=== PATIENT | female | born 1925 | race Caucasian/White ===

== ENCOUNTER 2016-09-24 21:25 | Inpatient (IN) | payer MEDICARE, BC ==
--- NOTE | 2016-09-24 21:40 | EDM.PDOC ---
ED HPI GENERAL MEDICAL PROBLEM - General Chief Complaint: General Stated Complaint: [facility] Time Seen by Provider: 09/24/16 21:39 - History of Present Illness INITIAL COMMENTS - FREE TEXT/NARRATIVE: 89-year-old [place] [facility] not [facility]. For the last week the patient is having upset stomach and has been complaining of abdominal pain. In the clinic yesterday it was discovered that she was anemic and is set up for a blood transfusion tomorrow. Patient has had a history of ulcers in the past however is not on any antiulcer medication at this time. She doesn't seem to be complaining of any chest pain not have any breathing difficulties or shortness of breath. Mostly history is from family who spends a lot of time with her. Left Shoulder Pain Score (Numeric/FACES): 3 - Related Data Allergies Allergy/AdvReac Type Severity Reaction Status Date / Time donepezil [From Aricept] Allergy Cannot Verified 09/24/16 21:36 Remember Sulfa (Sulfonamide Allergy Cannot Verified 08/01/15 10:20 Antibiotics) Remember sulfamethoxazole Allergy Cannot Verified 09/24/16 21:36 [From Bactrim] Remember trimethoprim [From Bactrim] Allergy Cannot Verified 09/24/16 21:36 Remember Home Meds: Home Meds Aspirin [Ecotrin] 1 tab PO DAILY 08/01/15 [History] Atenolol [Tenormin] 1 tab PO DAILY 08/01/15 [History] Lisinopril 1 tab PO DAILY 08/01/15 [History] amLODIPine [Norvasc] 1 tab PO DAILY 08/01/15 [History] ED ROS GENERAL - Review of Systems Review Of Systems: See Below Constitutional: Reports: No Symptoms HEENT: Reports: No Symptoms Respiratory: Reports: No Symptoms Cardiovascular: Reports: No Symptoms. Denies: Chest Pain Endocrine: Reports: No Symptoms GI/Abdominal: Reports: Abdominal Pain (Mostly upper abdominal) : Reports: Other (Patient was treated with Bactrim for urinary tract infection she finished this up on the family seems to think that this is when her stomach trouble started.) Neurological: Reports: Confusion. Denies: Headache ED EXAM, GENERAL - Physical Exam Exam: See Below Exam Limited By: Altered Mental Status General Appearance: Alert, Other (He is mildly diaphoretic answers some questions) Eye Exam: Bilateral Eye: Normal Inspection Nose: Normal Inspection, Normal Mucosa, No Blood Throat/Mouth: Normal Inspection, Normal Lips, Normal Oropharynx, Normal Voice, No Airway Compromise Head: Atraumatic, Normocephalic Neck: Normal Inspection, Supple, Non-Tender, Full Range of Motion Respiratory/Chest: No Respiratory Distress, Lungs Clear, Normal Breath Sounds Cardiovascular: Regular Rate, Rhythm, No Edema, No Murmur GI/Abdominal: Normal Bowel Sounds, Soft, Other (She has some upper abdominal tenderness worse in the epigastric area and to a lesser degree in the left upper quadrant. No other tenderness appreciated no rebound or guarding noted) Rectal (Female) Exam: Normal Rectal Tone, Black Stool, Heme + Stool Back Exam: Normal Inspection. No: CVA Tenderness (L), CVA Tenderness (R) Extremities: Normal Inspection Course - Vital Signs Last Recorded V/S: Last Vital Signs Temp Pulse 61 09/24/16 21:27 Resp 18 09/24/16 21:27 BP 131/51 L 09/24/16 21:27 Pulse Ox 100 09/24/16 21:27 - Orders/Labs/Meds Orders: Active Orders 24 hr Category Date Time Status Hemoccult [Fecal Occult Blood Collection] [RC] Care 09/24/16 22:06 Active ASDIRECTED Chest 1V Frontal [CR] Stat Exams 09/24/16 21:59 Taken CULTURE BLOOD [BC] Stat Lab 09/24/16 23:49 Received CULTURE BLOOD [BC] Stat Lab 09/24/16 23:49 Received Pantoprazole [ProTONIX IV] 80 mg Med 09/25/16 02:00 Ordered Sodium Chloride 0.9% [Normal Saline] 100 ml IV Q10H Blood Culture x2 Reflex Set [OM.PC] Stat Oth 09/24/16 23:49 Ordered Medication Orders Pantoprazole Sodium 80 mg/ (Sodium Chloride) 100 mls @ 10 mls/hr IV Q10H EBEN PRN Reason: 8 MG/HR Labs: Laboratory Tests 09/24/16 09/24/16 09/24/16 Range/Units 22:10 22:10 22:10 WBC 7.45 (3.98-10.04) K/mm3 RBC 3.31 L (3.98-5.22) M/mm3 Hgb 10.5 L (11.2-15.7) gm/L Hct 30.8 L (34.1-44.9) % MCV 93.1 (79.4-94.8) fl MCH 31.7 (25.6-32.2) pg MCHC 34.1 (32.2-35.5) g/dl RDW Std Deviation 47.7 H (36.4-46.3) fL Plt Count 472 H (182-369) K/mm3 MPV 10.3 (9.4-12.3) fl Neutrophils % (Manual) 69 H (40-60) % Band Neutrophils % 0 (0-10) % Lymphocytes % (Manual) 25 (20-40) % Atypical Lymphs % 0 % Monocytes % (Manual) 6 (2-10) % Eosinophils % (Manual) 0 L (0.7-5.8) % Basophils % (Manual) 0 L (0.1-1.2) Platelet Estimate Increased RBC Morph Comment Normal PT 10.6 (8.0-13.0) SECONDS INR 0.97 APTT 21 L (22-36) SECONDS Sodium 137 (136-145) mEq/L Potassium 3.7 (3.5-5.1) mEq/L Chloride 103 (98-107) mEq/L Carbon Dioxide 23 (21-32) mEq/L Anion Gap 14.7 (5-15) BUN 21 H (7-18) mg/dL Creatinine 0.8 (0.55-1.02) mg/dL Est Cr Clr Drug Dosing 34.24 mL/min Estimated GFR (MDRD) > 60 (>60) mL/min BUN/Creatinine Ratio 26.3 H (14-18) Glucose 176 H (83-115) mg/dL Lactic Acid (0.4-2.0) mmol/L Calcium 8.0 L (8.5-10.1) mg/dL Total Bilirubin 0.5 (0.2-1.0) mg/dL AST 22 (15-37) U/L ALT 27 (14-59) U/L Alkaline Phosphatase 40 L (46-116) U/L Troponin I 0.032 (0.00-0.056) ng/mL Total Protein 5.5 L (6.4-8.2) g/dl Albumin 2.6 L (3.4-5.0) g/dl Globulin 2.9 gm/dL Albumin/Globulin Ratio 0.9 L (1-2) Lipase 98 (73-393) U/L Urine Color (Yellow) Urine Appearance (Clear) Urine pH (5.0-8.0) Ur Specific [place] (1.005-1.030) Urine Protein (Negative) Urine Glucose (UA) (Negative) Urine Ketones (Negative) Urine Occult Blood (Negative) Urine Nitrite (Negative) Urine Bilirubin (Negative) Urine Urobilinogen (0.2-1.0) Ur Leukocyte Esterase (Negative) Urine RBC (0-5) /hpf Urine WBC (0-5) /hpf Ur Epithelial Cells (0-5) /hpf Urine Bacteria (FEW) /hpf Urine Mucus (FEW) /hpf 09/24/16 09/25/16 Range/Units 22:27 00:12 WBC (3.98-10.04) K/mm3 RBC (3.98-5.22) M/mm3 Hgb (11.2-15.7) gm/L Hct (34.1-44.9) % MCV (79.4-94.8) fl MCH (25.6-32.2) pg MCHC (32.2-35.5) g/dl RDW Std Deviation (36.4-46.3) fL Plt Count (182-369) K/mm3 MPV (9.4-12.3) fl Neutrophils % (Manual) (40-60) % Band Neutrophils % (0-10) % Lymphocytes % (Manual) (20-40) % Atypical Lymphs % % Monocytes % (Manual) (2-10) % Eosinophils % (Manual) (0.7-5.8) % Basophils % (Manual) (0.1-1.2) Platelet Estimate RBC Morph Comment PT (8.0-13.0) SECONDS INR APTT (22-36) SECONDS Sodium (136-145) mEq/L Potassium (3.5-5.1) mEq/L Chloride (98-107) mEq/L Carbon Dioxide (21-32) mEq/L Anion Gap (5-15) BUN (7-18) mg/dL Creatinine (0.55-1.02) mg/dL Est Cr Clr Drug Dosing mL/min Estimated GFR (MDRD) (>60) mL/min BUN/Creatinine Ratio (14-18) Glucose (83-115) mg/dL Lactic Acid 3.6 H (0.4-2.0) mmol/L Calcium (8.5-10.1) mg/dL Total Bilirubin (0.2-1.0) mg/dL AST (15-37) U/L ALT (14-59) U/L Alkaline Phosphatase (46-116) U/L Troponin I (0.00-0.056) ng/mL Total Protein (6.4-8.2) g/dl Albumin (3.4-5.0) g/dl Globulin gm/dL Albumin/Globulin Ratio (1-2) Lipase (73-393) U/L Urine Color Yellow (Yellow) Urine Appearance Clear (Clear) Urine pH 6.0 (5.0-8.0) Ur Specific [place] 1.025 (1.005-1.030) Urine Protein Negative (Negative) Urine Glucose (UA) Negative (Negative) Urine Ketones Negative (Negative) Urine Occult Blood Negative (Negative) Urine Nitrite Negative (Negative) Urine Bilirubin Negative (Negative) Urine Urobilinogen 0.2 (0.2-1.0) Ur Leukocyte Esterase Negative (Negative) Urine RBC 0-5 (0-5) /hpf Urine WBC 0-5 (0-5) /hpf Ur Epithelial Cells 0-5 (0-5) /hpf Urine Bacteria Not seen (FEW) /hpf Urine Mucus Not seen (FEW) /hpf Meds: Medications Generic Name Dose Route Start Last Admin Trade Name Freq PRN Reason Stop Dose Admin Pantoprazole Sodium 80 mg/ 100 mls @ 10 mls/hr 09/25/16 02:00 Sodium Chloride IV Q10H EBEN 8 MG/HR Discontinued Medications Generic Name Dose Route Start Last Admin Trade Name Freq PRN Reason Stop Dose Admin Al Hydroxide/Mg Hydroxide 30 0 ml 09/24/16 23:10 09/24/16 23:19 ml/ Lidocaine HCl 15 ml PO 09/24/16 23:11 45 ml ONETIME ONE Administration Fentanyl 25 mcg 09/24/16 23:58 09/25/16 00:09 Sublimaze IVPUSH 09/24/16 23:59 25 mcg ONETIME ONE Administration Lactated Ringer's 500 mls @ 999 mls/hr 09/24/16 23:48 09/24/16 23:52 Ringers, Lactated IV 09/25/16 00:18 999 mls/hr .BOLUS ONE Administration Pantoprazole Sodium 40 mg 09/24/16 22:02 09/24/16 22:15 Protonix Iv IVPUSH 09/24/16 22:03 40 mg ONETIME ONE Administration Pantoprazole Sodium 40 mg 09/25/16 01:53 Protonix Iv IVPUSH 09/25/16 01:54 ONETIME ONE Sucralfate 1 gm 09/24/16 22:01 09/24/16 22:15 Carafate PO 09/24/16 22:02 1 gm ONETIME ONE Administration - Re-Assessments/Exams Free Text/Narrative Re-Assessment/Exam: 09/24/16 22:12 Upper abdominal discomfort history of ulcers in the past and heme positive stools. We'll try her on some Carafate for symptom improvement give her some IV Protonix await labs cardiac and gastrointestinal labs pending. Will recheck a CBC consider transfusion of 1 unit tonight 09/24/16 23:12 Patient didn't get any improvement with the Carafate will try GI cocktail CBC is back no other labs back at this point CBC is shows an anemia does not meet criteria for transfusion. We'll try GI cocktail and anticipate a CT scan she is hard to evaluate with her dementia. 09/25/16 02:07 Shortly after the chest x-ray done, it was looked at and was concerning for possible free air under the diaphragm. This was discussed with family and the implications the made it apparent that she is a DNR and are not interested in going to [place] they're not interested in surgical management they're more interested in comfort care. They do not want an NG tube however they agreed to antibiotics and possibly transfusion. Case was discussed with Dr. Molina surgeon labor relations worker who doesn't think he has much to offer in this situation recommends IV antibiotics. He also recommended CT however the family is against the idea of getting a CT. We discussed NG tube placement as this may be beneficial and would they would like to hold off on this. Patient will be admitted for pain control antibiotics and IV fluids. Early on the patient received 40 mg of IV Protonix when she was found to be Hemoccult positive we will give her an additional 40 mg of IV Protonix and started on a Protonix drip 8 mg an hour for 10 hours. Departure - Departure Time of Disposition: 02:23 Disposition: Admitted As Inpatient 68 Clinical Impression: Perforated abdominal viscus - Discharge Information Forms: ED Department Discharge - My Orders Last 24 Hours: My Active Orders 09/24/16 21:59 Chest 1V Frontal [CR] Stat 09/24/16 22:06 Hemoccult [Fecal Occult Blood Collection] [RC] ASDIRECTED 09/24/16 23:49 CULTURE BLOOD [BC] Stat CULTURE BLOOD [BC] Stat Blood Culture x2 Reflex Set [OM.PC] Stat 09/25/16 02:00 Pantoprazole [ProTONIX IV] 80 mg Sodium Chloride 0.9% [Normal Saline] 100 ml IV Q10H - Assessment/Plan Last 24 Hours: My Active Orders 09/24/16 21:59 Chest 1V Frontal [CR] Stat 09/24/16 22:06 Hemoccult [Fecal Occult Blood Collection] [RC] ASDIRECTED 09/24/16 23:49 CULTURE BLOOD [BC] Stat CULTURE BLOOD [BC] Stat Blood Culture x2 Reflex Set [OM.PC] Stat 09/25/16 02:00 Pantoprazole [ProTONIX IV] 80 mg Sodium Chloride 0.9% [Normal Saline] 100 ml IV Q10H
[2016-09-24] MEDS ORDERED: Sucralfate Suspension 1 GM/10 ML Cup PO ONE (22:01)
[2016-09-24] MEDS ORDERED: Pantoprazole 40 MG Vial IVPUSH ONE (22:02)
[2016-09-24] MEDS ORDERED: Alum Hydrox/Mag Hydrox/Simeth 30 ML, Lidocaine 2% 15 ML PO ONE ×2 (23:10)
[2016-09-24] MEDS ORDERED: Lactated Ringers 500 ML IV ONE (23:48)
[2016-09-24] MEDS ORDERED: fentaNYL 100 MCG/2 ML SDV IVPUSH ONE (23:58)
[2016-09-25] MEDS ORDERED: Pantoprazole 40 MG Vial IVPUSH ONE (01:53)
[2016-09-25] MEDS ORDERED: Pantoprazole 80 MG in Sodium Chloride 0.9% 100 ML IV SCH (02:00)
[2016-09-25] MEDS ORDERED: Lactated Ringers 250 ML IV ONE (02:34)
[2016-09-25] MEDS ORDERED: Lactated Ringers 1,000 ML ONE (02:38)
[2016-09-25] MEDS ORDERED: Dextrose 5%-Lactated Ringers 1,000 ML ONE (02:48)
[2016-09-25] MEDS ORDERED: Dextrose 5%-Lactated Ringers 1,000 ML IV SCH ×2 (03:00→04:00)
[2016-09-25] MEDS ORDERED: Piperacillin/Tazobactam 3.375 GM in Sodium Chloride 0.9% 100 ML IV SCH (03:45)
[2016-09-25] MEDS ORDERED: fentaNYL 100 MCG/2 ML SDV IVPUSH PRN (03:47)
[2016-09-25] MEDS ORDERED: Piperacillin/Tazobactam 4.5 GM in Sodium Chloride 0.9% 100 ML IV ONE (04:00)
[2016-09-25] MEDS ORDERED: Piperacillin/Tazobactam 3.375 GM in Sodium Chloride 0.9% 100 ML IV ONE (04:00)
[2016-09-25] MEDS: metroNIDAZOLE/Normal Saline 500 MG in Premix Bag 1 BAG IV SCH ×4 (04:33→23:11)
[2016-09-25] MEDS: fentaNYL 100 MCG/2 ML SDV IVPUSH PRN ×2 (05:17→08:32)
--- NOTE | 2016-09-25 08:42 | CR ---
Chest: Frontal view of the chest was obtained. Comparison: No previous chest x-ray. Free air identified below both hemidiaphragms. Heart size and mediastinum are within normal limits for age. Lungs are clear with no acute infiltrates. Bony structures are osteopenic. Mild degenerative change scattered within the thoracic spine. Impression: 1. Free air beneath the hemidiaphragms. Difficult to exclude bowel perforation if patient has had no previous surgery. 2. Other incidental findings. Diagnostic code #5 Agree with preliminary report issued by [facility] ([facility] preliminary report dictated on 09/25/16, 1:03 AM Central Time)
[2016-09-25] MEDS ORDERED: HYDROmorphone 1 MG/ML Syringe IVPUSH PRN (09:04)
[2016-09-25] MEDS: Dextrose 5%-0.45% NaCl 1,000 ML IV SCH ×2 (09:34→19:31)
--- NOTE | 2016-09-25 10:37 | PCM.PN ---
- General Info Date of Service: 09/25/16 Admission Dx/Problem (Free Text): Patient is seen this morning with team rounding. She is awake, alert, disorientated, resting comfortably upon entering room. Family member is sleeping on couch. Family has declined CT evaluation of abdomen while in ER and has requested comfort cares with antibiotics, fluids and pain medications. Suspected perforated viscus, gastric/peptic ulcer by hx, with free air noted under the diaphragm on CXR in ER. Functional Status: Denies: tolerating diet (NPO), ambulating - Review of Systems General: Denies: Fever Pulmonary: Denies: shortness of breath, cough Gastrointestinal: Reports: Abdominal pain Neurological: Reports: Confusion Psychiatric: Reports: confusion Systems Review Comment:: ROS unable to obtain due to dementia/mental status - Patient Data Vitals - most recent: Last Vital Signs Temp Pulse 58 L 09/25/16 08:00 Resp 18 09/25/16 08:00 BP 113/64 09/25/16 07:29 Pulse Ox 95 09/25/16 10:07 Weight - most recent: 117 lb 4.8 oz I&O - last 24 hours: Intake & Output 09/24/16 09/25/16 09/25/16 22:59 06:59 14:59 Intake Total 531 Balance 531 Lab Results last 24 hrs: Laboratory Results - last 24 hr 09/25/16 09/25/16 09/25/16 Range/Units 08:10 08:10 08:10 WBC 3.22 L (3.98-10.04) K/mm3 RBC 3.27 L (3.98-5.22) M/mm3 Hgb 10.1 L (11.2-15.7) gm/L Hct 30.4 L (34.1-44.9) % MCV 93.0 (79.4-94.8) fl MCH 30.9 (25.6-32.2) pg MCHC 33.2 (32.2-35.5) g/dl RDW Std Deviation 49.3 H (36.4-46.3) fL Plt Count 420 H (182-369) K/mm3 MPV 10.4 (9.4-12.3) fl Neut % (Auto) 75.5 H (34.0-71.1) % Lymph % (Auto) 17.7 L (19.3-51.7) % [place] % (Auto) 6.2 (4.7-12.5) % Eos % (Auto) 0 L (0.7-5.8) Baso % (Auto) 0.3 (0.1-1.2) % Neut # (Auto) 2.43 (1.56-6.13) K/mm3 Lymph # (Auto) 0.57 L (1.18-3.74) K/mm3 [place] # (Auto) 0.20 L (0.24-0.36) K/mm3 Eos # (Auto) 0.00 L (0.04-0.36) K/mm3 Baso # (Auto) 0.01 (0.01-0.08) K/mm3 Manual Slide Review Abnormal smear Sodium 135 L (136-145) mEq/L Potassium 4.1 (3.5-5.1) mEq/L Chloride 104 (98-107) mEq/L Carbon Dioxide 19 L (21-32) mEq/L Anion Gap 16.1 H (5-15) BUN 26 H (7-18) mg/dL Creatinine 1.4 H (0.55-1.02) mg/dL Est Cr Clr Drug Dosing 19.57 mL/min Estimated GFR (MDRD) 35 (>60) mL/min BUN/Creatinine Ratio 18.6 H (14-18) Glucose 227 H (83-115) mg/dL Lactic Acid 5.1 H (0.4-2.0) mmol/L Calcium 7.7 L (8.5-10.1) mg/dL C-Reactive Protein 5.1 H* (<1.0) mg/dL Med Orders - Current: Current Medications Hydromorphone HCl (Dilaudid) 1 mg IVPUSH Q1H PRN PRN Reason: Pain (moderate 4-6) Last Admin: 09/25/16 09:51 Dose: 1 mg Metronidazole 500 mg/ Premix 100 mls @ 100 mls/hr IV Q6H [facility] Last Admin: 09/25/16 09:34 Dose: 100 mls/hr Piperacillin Sod/Tazobactam (Sod 4.5 gm/ Sodium Chloride) 100 mls @ 25 mls/hr IV Q8H [facility] Dextrose/Sodium Chloride (Dextrose 5%-1/2 Ns) 1,000 mls @ 100 mls/hr IV ASDIRECTED EBEN Last Admin: 09/25/16 09:34 Dose: 100 mls/hr Pantoprazole Sodium (Protonix Iv) 40 mg IVPUSH Q24H [facility] Discontinued Medications Al Hydroxide/Mg Hydroxide 30 (ml/ Lidocaine HCl 15 ml) 0 ml PO ONETIME ONE Stop: 09/24/16 23:11 Last Admin: 09/24/16 23:19 Dose: 45 ml Fentanyl (Sublimaze) 25 mcg IVPUSH ONETIME ONE Stop: 09/24/16 23:59 Last Admin: 09/25/16 00:09 Dose: 25 mcg Fentanyl (Sublimaze) 25 mcg IVPUSH Q4H PRN PRN Reason: Pain Last Admin: 09/25/16 04:05 Dose: 25 mcg Fentanyl (Sublimaze) 25 mcg IVPUSH Q1H PRN PRN Reason: Pain Last Admin: 09/25/16 08:32 Dose: 25 mcg Lactated Ringer's (Ringers, Lactated) 500 mls @ 999 mls/hr IV .BOLUS ONE Stop: 09/25/16 00:18 Last Admin: 09/24/16 23:52 Dose: 999 mls/hr Pantoprazole Sodium 80 mg/ (Sodium Chloride) 100 mls @ 10 mls/hr IV Q10H [facility] PRN Reason: 8 MG/HR Last Admin: 09/25/16 02:27 Dose: 8 mg/hr, 10 mls/hr Lactated Ringer's (Ringers, Lactated) 250 mls @ 999 mls/hr IV .BOLUS ONE Stop: 09/25/16 02:49 Last Admin: 09/25/16 02:37 Dose: 999 mls/hr Lactated Ringer's (Ringers, Lactated) Confirm Administered Dose 1,000 mls @ as directed .ROUTE .STK-MED ONE Stop: 09/25/16 02:39 Last Admin: 09/25/16 02:52 Dose: Not Given Dextrose/Lactated Ringer's (Dextrose 5%-Lactated Ringers) Confirm Administered Dose 1,000 mls @ as directed .ROUTE .STK-MED ONE Stop: 09/25/16 02:49 Last Admin: 09/25/16 05:20 Dose: Not Given Dextrose/Lactated Ringer's (Dextrose 5%-Lactated Ringers) 1,000 mls @ 125 mls/ hr IV ASDIRECTED [facility] Piperacillin Sod/Tazobactam (Sod 4.5 gm/ Sodium Chloride) 100 mls @ 200 mls/hr IV ONETIME ONE Stop: 09/25/16 04:29 Last Admin: 09/25/16 04:35 Dose: 200 mls/hr Dextrose/Lactated Ringer's (Dextrose 5%-Lactated Ringers) 1,000 mls @ 125 mls/ hr IV ASDIRECTED EBEN Last Admin: 09/25/16 02:45 Dose: 125 mls/hr Pantoprazole Sodium (Protonix Iv) 40 mg IVPUSH ONETIME ONE Stop: 09/24/16 22:03 Last Admin: 09/24/16 22:15 Dose: 40 mg Pantoprazole Sodium (Protonix Iv) 40 mg IVPUSH ONETIME ONE Stop: 09/25/16 01:54 Last Admin: 09/25/16 02:10 Dose: 40 mg Sucralfate (Carafate) 1 gm PO ONETIME ONE Stop: 09/24/16 22:02 Last Admin: 09/24/16 22:15 Dose: 1 gm - Exam Quality Assessment: DVT prophylaxis General: alert, no acute distress HEENT: Pupils equal, EOMI Lungs: Normal respiratory effort, Decreased breath sounds (bases). No: Crackles , Rhonchi, Wheezing Cardiovascular: Regular Rate, Regular Rhythm Abdomen: guarding, tenderness (diffuse; worse to upper abdomen, no distension or rigidity at time of exam. Bowel sounds are absent), abnormal bowel sounds ( absent). No: rigidity (Female) Exam: Deferred Extremities: other (motteling noted to mid thighs bilat lower extremities) Neurological: other (altered mentation; dementia; nonsensical speech/thought) Psy/Mental Status: alert - Problem List & Annotations (1) Perforated abdominal viscus SNOMED Code(s): 801501107 Code(s): MPQ6209 - Status: Acute Priority: High Current Visit: Yes (2) Dementia SNOMED Code(s): 10613782 Code(s): F03.90 - UNSPECIFIED DEMENTIA WITHOUT BEHAVIORAL DISTURBANCE Status: Chronic Current Visit: Yes Qualifiers: Dementia behavioral disturbance: with behavioral disturbance - Problem List Review Problem List Initiated/Reviewed/Updated: Yes - My Orders Last 24 Hours: My Active Orders 09/25/16 06:45 Consult to Spiritual Care [CONS] Routine 09/25/16 09:04 HYDROmorphone [Dilaudid] 1 mg IVPUSH Q1H PRN 09/25/16 10:21 Admission Status [Patient Status] [ADT] Routine 09/25/16 17:00 Pantoprazole [ProTONIX IV] 40 mg IVPUSH Q24H - Plan Plan:: I/P: Abdominal pain- likely perforated abdominal viscous/gastric ulcer by hx -Free air under diaphragm on CXR. -Family refuses/defers further imaging, CT of abd/pelvis in ER -Family elects Comfort cares with IV abx, IVF and pain medications at this time, no surgical intervention. -IV flagyl and levaquin, protonix IVP, IVF- D51/2NS infusing at 100cc/hr -Pain management- fentanyl changed to dilaudid IVP Q1 hr -Not a good prognosis for this patient at this time Dementia -Chronic -Aggitation overnight; 1:1 care due to high fall risk Other: Code status listed as DNR/DNI, family wishes comfort cares with above noted interventions; needs clarifications.
[2016-09-25] MEDS: Piperacillin/Tazobactam 4.5 GM in Sodium Chloride 0.9% 100 ML IV SCH ×2 (12:42→19:30)
[2016-09-25] MEDS ORDERED: HYDROmorphone 0.5 MG/0.5 ML Syringe IVPUSH PRN (13:18)
[2016-09-25] MEDS ORDERED: Pantoprazole 40 MG Vial IVPUSH SCH (17:00)
[2016-09-25] MEDS ORDERED: LORazepam 2 MG/ML MDV IVPUSH ONE (20:21)
--- NOTE | 2016-09-25 20:26 | PCM.HP ---
H&P History of Present Illness - General Date of Service: 09/24/16 Admit Problem/Dx: Abdominal Pain Source of Information: Patient, Family, Old Records, Provider, RN Notes Reviewed History Limitations: Reports: Altered Mental Status - History of Present Illness Initial Comments - Free Text/Narative: This is an 89-year-old elderly white female with past medical history of hyperlipidemia, hypertension and advanced dementia who comes in complaints of not feeling well for the past week now. She also admits to having upset stomach associated with abdominal pain. Per medical documentation, patient carries a history of ulcers in the past but currently she is not on any H2 blockers or PPIs. She denies any systemic symptoms. Her initial workup in emergency department shows a CBC remarkable for hemoglobin of 10.5, hematocrit of 30.8, platelet of 472, and neutrophils of 69% . Her chemistry is remarkable for a BUN of 21, glucose of 176, lactic acid of 3.6, calcium of 8, alkaline phosphatase of 40, troponin of 5.5, and albumin of 2.6. Her UA is negative for urine urinary tract infection. Her CXR report reads free air beneath the hemidiaphragms. Difficult to exclude bowel perforation if patient has had no previous surgery. Patient was admitted for abdominal pain suspected due to bowel perforation. She is DNR/DNI. Her family wants conservative management. Left Shoulder Pain Score (Numeric/FACES): 3 - Related Data Allergies/Adverse Reactions: Allergies Allergy/AdvReac Type Severity Reaction Status Date / Time donepezil [From Aricept] Allergy Cannot Verified 09/24/16 21:36 Remember Sulfa (Sulfonamide Allergy Cannot Verified 08/01/15 10:20 Antibiotics) Remember sulfamethoxazole Allergy Cannot Verified 09/24/16 21:36 [From Bactrim] Remember trimethoprim [From Bactrim] Allergy Cannot Verified 09/24/16 21:36 Remember Home Medications: Home Meds Aspirin [Ecotrin] 81 mg PO DAILY 08/01/15 [History] Atenolol [Tenormin] 100 mg PO DAILY 08/01/15 [History] Lisinopril 40 mg PO DAILY 08/01/15 [History] amLODIPine [Norvasc] 10 mg PO DAILY 08/01/15 [History] Past Medical History HEENT History: Reports: Cataract Cardiovascular History: Reports: Hypertension Respiratory History: Reports: None Gastrointestinal History: Reports: PUD Genitourinary History: Reports: UTI, Recurrent 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: Musculoskeletal History: Reports: Arthritis Neurological History: Reports: Alzheimers Disease Psychiatric History: Reports: Alzheimers Disease, Dementia Hematologic History: Reports: Anemia, Blood Transfusion(s) Immunologic History: Reports: None Oncologic (Cancer) History: Reports: None - Past Surgical History HEENT Surgical History: Reports: Cataract Surgery GI Surgical History: Reports: Cholecystectomy, Colonoscopy Other Neurological Surgeries/Procedures: back surgery x3 Social & Family History - Family History Family Medical History: Noncontributory - Tobacco Use Smoking Status *Q: Never Smoker Second Hand Smoke Exposure: No - Caffeine Use Caffeine Use: Reports: Coffee - Recreational Drug Use Recreational Drug Use: No H&P Review of Systems - Review of Systems: Review Of Systems: See Below General: Reports: Decreased Appetite. Denies: Fever, Chills, Weakness, Fatigue HEENT: Reports: No Symptoms Pulmonary: Denies: Shortness of Breath Cardiovascular: Denies: Chest Pain Gastrointestinal: Reports: Abdominal Pain. Denies: Nausea, Vomiting Genitourinary: Reports: No Symptoms Musculoskeletal: Reports: No Symptoms Skin: Reports: No Symptoms Psychiatric: Denies: Depression, Anxiety, Hallucinations Neurological: Reports: Confusion, Pre-Existing Deficit Hematologic/Lymphatic: Reports: No Symptoms Immunologic: Reports: No Symptoms Exam - Exam Exam: See Below - Vital Signs Vital Signs: Last Vital Signs Temp Pulse 66 09/25/16 19:53 Resp 40 H 09/25/16 19:53 BP 78/42 L 09/25/16 19:53 Pulse Ox 91 L 09/25/16 19:53 Weight: 53.206 kg - Exam General: Lethargic, Other (Awake). No: Alert HEENT: Conjunctiva Clear, Nares Patent, Normal Nasal Septum, Pupils Equal, Pupils Reactive Neck: Supple, Trachea Midline Lungs: Normal Respiratory Effort, Decreased Breath Sounds Cardiovascular: Regular Rate, Regular Rhythm Abdomen: Normal Bowel Sounds, Soft, Tenderness (Female) Exam: Deferred Rectal (Female) Exam: Deferred Back Exam: Normal Inspection Extremities: Normal Inspection, Normal Pulses Skin: Warm, Dry, Intact Physical Exam Comments:: Deferred neuro exam due to altered mental status and also pain with movement. - Patient Data Lab Results Last 24 hrs: Laboratory Results - last 24 hr 09/25/16 09/25/1617 Range/Units 08:10 08:10 08:10 WBC 3.22 L (3.98-10.04) K/mm3 RBC 3.27 L (3.98-5.22) M/mm3 Hgb 10.1 L (11.2-15.7) gm/L Hct 30.4 L (34.1-44.9) % MCV 93.0 (79.4-94.8) fl MCH 30.9 (25.6-32.2) pg MCHC 33.2 (32.2-35.5) g/dl RDW Std Deviation 49.3 H (36.4-46.3) fL Plt Count 420 H (182-369) K/mm3 MPV 10.4 (9.4-12.3) fl Neut % (Auto) 75.5 H (34.0-71.1) % Lymph % (Auto) 17.7 L (19.3-51.7) % [place] % (Auto) 6.2 (4.7-12.5) % Eos % (Auto) 0 L (0.7-5.8) Baso % (Auto) 0.3 (0.1-1.2) % Neut # (Auto) 2.43 (1.56-6.13) K/mm3 Lymph # (Auto) 0.57 L (1.18-3.74) K/mm3 [place] # (Auto) 0.20 L (0.24-0.36) K/mm3 Eos # (Auto) 0.00 L (0.04-0.36) K/mm3 Baso # (Auto) 0.01 (0.01-0.08) K/mm3 Manual Slide Review Abnormal smear Sodium 135 L (136-145) mEq/L Potassium 4.1 (3.5-5.1) mEq/L Chloride 104 (98-107) mEq/L Carbon Dioxide 19 L (21-32) mEq/L Anion Gap 16.1 H (5-15) BUN 26 H (7-18) mg/dL Creatinine 1.4 H (0.55-1.02) mg/dL Est Cr Clr Drug Dosing 19.57 mL/min Estimated GFR (MDRD) 35 (>60) mL/min BUN/Creatinine Ratio 18.6 H (14-18) Glucose 227 H (83-115) mg/dL Lactic Acid 5.1 H (0.4-2.0) mmol/L Calcium 7.7 L (8.5-10.1) mg/dL C-Reactive Protein 5.1 H* (<1.0) mg/dL MRSA (PCR) 09/25/16 Range/Units 12:20 WBC (3.98-10.04) K/mm3 RBC (3.98-5.22) M/mm3 Hgb (11.2-15.7) gm/L Hct (34.1-44.9) % MCV (79.4-94.8) fl MCH (25.6-32.2) pg MCHC (32.2-35.5) g/dl RDW Std Deviation (36.4-46.3) fL Plt Count (182-369) K/mm3 MPV (9.4-12.3) fl Neut % (Auto) (34.0-71.1) % Lymph % (Auto) (19.3-51.7) % [place] % (Auto) (4.7-12.5) % Eos % (Auto) (0.7-5.8) Baso % (Auto) (0.1-1.2) % Neut # (Auto) (1.56-6.13) K/mm3 Lymph # (Auto) (1.18-3.74) K/mm3 [place] # (Auto) (0.24-0.36) K/mm3 Eos # (Auto) (0.04-0.36) K/mm3 Baso # (Auto) (0.01-0.08) K/mm3 Manual Slide Review Sodium (136-145) mEq/L Potassium (3.5-5.1) mEq/L Chloride (98-107) mEq/L Carbon Dioxide (21-32) mEq/L Anion Gap (5-15) BUN (7-18) mg/dL Creatinine (0.55-1.02) mg/dL Est Cr Clr Drug Dosing mL/min Estimated GFR (MDRD) (>60) mL/min BUN/Creatinine Ratio (14-18) Glucose (83-115) mg/dL Lactic Acid (0.4-2.0) mmol/L Calcium (8.5-10.1) mg/dL C-Reactive Protein (<1.0) mg/dL MRSA (PCR) Negative Result Diagrams: 09/25/16 08:10 09/25/16 08:10 *Q Meaningful Use (ADM) - VTE *Q VTE Criteria *Q: - Stroke *Q Stroke Criteria *Q: - AMI *Q AMI Criteria *Q: Problem List Initiated/Reviewed/Updated: Yes Orders Last 24hrs: Active Orders 24 hr Category Date Time Status Admission Status [Patient Status] [ADT] Routine ADT 09/25/16 10:21 Active Antiembolic Devices [RC] PER UNIT ROUTINE Care 09/25/16 11:58 Active Bedrest [RC] ASDIRECTED Care 09/25/16 03:41 Active Insert Urinary Catheter [OM.PC] Q24H Care 09/25/16 13:15 Ordered Intake and Output [RC] 04,16 Care 09/25/16 03:45 Active Oxygen Therapy [RC] ASDIRECTED Care 09/25/16 12:40 Active Urinary Catheter Assessment [RC] ASDIRECTED Care 09/25/16 13:16 Active Consult to Spiritual Care [CONS] Routine Cons 09/25/16 06:45 Active Nothing Per Oral Diet [DIET] Diet 09/25/16 Breakfast Active Dextrose 5%-0.45% NaCl [Dextrose 5%-1/2 NS] 1,000 ml Med 09/25/16 07:42 Active IV ASDIRECTED HYDROmorphone [Dilaudid] Med 09/25/16 13:18 Active 0.5 mg IVPUSH Q1H PRN Pantoprazole [ProTONIX IV] Med 09/25/16 17:00 Active 40 mg IVPUSH Q24H Piperacillin/Tazobactam [Zosyn] 4.5 gm Med 09/25/16 12:00 Active Sodium Chloride 0.9% [Normal Saline] 100 ml IV Q8H metroNIDAZOLE/Normal Saline [Flagyl 500 MG in NS 100 ML Med 09/25/16 04:00 Active ] 500 mg Premix Bag 1 bag IV Q6H JOSÉ Hose Substitution [Sequential Compression Device] [ Oth 09/25/16 11:58 Ordered OM.PC] Routine Resuscitation Status Routine Resus Stat 09/25/16 03:29 Ordered Medication Orders Hydromorphone HCl (Dilaudid) 0.5 mg IVPUSH Q1H PRN PRN Reason: Pain Metronidazole 500 mg/ Premix 100 mls @ 100 mls/hr IV Q6H [facility] Last Admin: 09/25/16 15:07 Dose: 100 mls/hr Infusion: 09/25/16 10:34 Dose: 100 mls/hr Admin: 09/25/16 09:34 Dose: 100 mls/hr Infusion: 09/25/16 05:33 Dose: 100 mls/hr Admin: 09/25/16 04:33 Dose: 100 mls/hr Piperacillin Sod/Tazobactam (Sod 4.5 gm/ Sodium Chloride) 100 mls @ 25 mls/hr IV Q8H [facility] Last Admin: 09/25/16 19:30 Dose: 25 mls/hr Infusion: 09/25/16 16:42 Dose: 25 mls/hr Admin: 09/25/16 12:42 Dose: 25 mls/hr Dextrose/Sodium Chloride (Dextrose 5%-1/2 Ns) 1,000 mls @ 100 mls/hr IV ASDIRECTED [facility] Last Admin: 09/25/16 19:31 Dose: 100 mls/hr Infusion: 09/25/16 19:31 Dose: 100 mls/hr Admin: 09/25/16 09:34 Dose: 100 mls/hr Pantoprazole Sodium (Protonix Iv) 40 mg IVPUSH Q24H [facility] Last Admin: 09/25/16 16:23 Dose: 40 mg Assessment/Plan Comment:: Assessment/Plan: Acute: Abdominal pain- likely perforated abdominal viscous/gastric ulcer by hx - Free air under diaphragm on CXR - LA 3.6 suggestive of localized bowel ischemia - Family refuses/defers further imaging, CT of abd/pelvis in ER - Family elects Comfort cares with IV abx, IVF and pain medications at this time, no surgical intervention - IV flagyl and levaquin, protonix IVP, IVF- D51/2NS infusing at 100cc/hr - Pain management- fentanyl changed to dilaudid IVP Q1 hr - Not a good prognosis for this patient at this time Dementia - Chronic - Agitation overnight; 1:1 care due to high fall risk Chronic: HTN HLD Plan: Admit to Med-Surg Floor Routine AM Labs Resume Home Meds Hold PT/OT SW/CM for d/c planning Family wants conservative management Chris offer comfort measures or palliative care if they don't want aggressive management Code status: DNR/DNI
[2016-09-25] MEDS ORDERED: Dextrose 5%-0.45% NaCl 500 ML IV SCH (21:30)
[2016-09-25] MEDS ORDERED: Scopolamine 1.5 MG Transdermal Patch TRDERM PRN (22:40)
[2016-09-25] MEDS ORDERED: LORazepam 2 MG/ML MDV IVPUSH PRN (22:46)
[2016-09-26] MEDS: Morphine 2 MG/ML Syringe IVPUSH PRN ×3 (00:17→09:41)
--- NOTE | 2016-09-26 07:20 | PCM.PN ---
- General Info Date of Service: 09/26/16 Admission Dx/Problem (Free Text): Abdominal Pain Subjective Update: Follow Up Functional Status: Reports: pain controlled, urinating. Denies: tolerating diet , ambulating, new symptoms - Patient Data Vitals - most recent: Last Vital Signs Temp 36.8 C 09/25/16 20:00 Pulse 67 09/25/16 19:53 Resp 40 H 09/25/16 20:00 BP 72/58 L 09/25/16 20:00 Pulse Ox 92 L 09/25/16 19:53 Weight - most recent: 54.476 kg I&O - last 24 hours: Intake & Output 09/25/16 09/26/16 09/26/16 22:59 06:59 14:59 Intake Total 965 1149 Output Total 600 0 Balance 365 1149 Lab Results last 24 hrs: Laboratory Results - last 24 hr 09/25/16 09/25/16 09/25/16 Range/Units 08:10 08:10 08:10 WBC 3.22 L (3.98-10.04) K/mm3 RBC 3.27 L (3.98-5.22) M/mm3 Hgb 10.1 L (11.2-15.7) gm/L Hct 30.4 L (34.1-44.9) % MCV 93.0 (79.4-94.8) fl MCH 30.9 (25.6-32.2) pg MCHC 33.2 (32.2-35.5) g/dl RDW Std Deviation 49.3 H (36.4-46.3) fL Plt Count 420 H (182-369) K/mm3 MPV 10.4 (9.4-12.3) fl Neut % (Auto) 75.5 H (34.0-71.1) % Lymph % (Auto) 17.7 L (19.3-51.7) % [place] % (Auto) 6.2 (4.7-12.5) % Eos % (Auto) 0 L (0.7-5.8) Baso % (Auto) 0.3 (0.1-1.2) % Neut # (Auto) 2.43 (1.56-6.13) K/mm3 Lymph # (Auto) 0.57 L (1.18-3.74) K/mm3 [place] # (Auto) 0.20 L (0.24-0.36) K/mm3 Eos # (Auto) 0.00 L (0.04-0.36) K/mm3 Baso # (Auto) 0.01 (0.01-0.08) K/mm3 Manual Slide Review Abnormal smear Sodium 135 L (136-145) mEq/L Potassium 4.1 (3.5-5.1) mEq/L Chloride 104 (98-107) mEq/L Carbon Dioxide 19 L (21-32) mEq/L Anion Gap 16.1 H (5-15) BUN 26 H (7-18) mg/dL Creatinine 1.4 H (0.55-1.02) mg/dL Est Cr Clr Drug Dosing 19.57 mL/min Estimated GFR (MDRD) 35 (>60) mL/min BUN/Creatinine Ratio 18.6 H (14-18) Glucose 227 H (83-115) mg/dL Lactic Acid 5.1 H (0.4-2.0) mmol/L Calcium 7.7 L (8.5-10.1) mg/dL C-Reactive Protein 5.1 H* (<1.0) mg/dL MRSA (PCR) 09/25/16 Range/Units 12:20 WBC (3.98-10.04) K/mm3 RBC (3.98-5.22) M/mm3 Hgb (11.2-15.7) gm/L Hct (34.1-44.9) % MCV (79.4-94.8) fl MCH (25.6-32.2) pg MCHC (32.2-35.5) g/dl RDW Std Deviation (36.4-46.3) fL Plt Count (182-369) K/mm3 MPV (9.4-12.3) fl Neut % (Auto) (34.0-71.1) % Lymph % (Auto) (19.3-51.7) % [place] % (Auto) (4.7-12.5) % Eos % (Auto) (0.7-5.8) Baso % (Auto) (0.1-1.2) % Neut # (Auto) (1.56-6.13) K/mm3 Lymph # (Auto) (1.18-3.74) K/mm3 [place] # (Auto) (0.24-0.36) K/mm3 Eos # (Auto) (0.04-0.36) K/mm3 Baso # (Auto) (0.01-0.08) K/mm3 Manual Slide Review Sodium (136-145) mEq/L Potassium (3.5-5.1) mEq/L Chloride (98-107) mEq/L Carbon Dioxide (21-32) mEq/L Anion Gap (5-15) BUN (7-18) mg/dL Creatinine (0.55-1.02) mg/dL Est Cr Clr Drug Dosing mL/min Estimated GFR (MDRD) (>60) mL/min BUN/Creatinine Ratio (14-18) Glucose (83-115) mg/dL Lactic Acid (0.4-2.0) mmol/L Calcium (8.5-10.1) mg/dL C-Reactive Protein (<1.0) mg/dL MRSA (PCR) Negative Med Orders - Current: Current Medications Lorazepam (Ativan) 1 mg IVPUSH Q4H PRN PRN Reason: restlessness Morphine Sulfate (Morphine) 2 mg IVPUSH Q4H PRN PRN Reason: Pain Last Admin: 09/26/16 03:58 Dose: 2 mg Scopolamine (Transderm-Scop) 1.5 mg TRDERM Q72H PRN PRN Reason: Nausea Last Admin: 09/25/16 23:05 Dose: 1.5 mg Discontinued Medications Al Hydroxide/Mg Hydroxide 30 (ml/ Lidocaine HCl 15 ml) 0 ml PO ONETIME ONE Stop: 09/24/16 23:11 Last Admin: 09/24/16 23:19 Dose: 45 ml Fentanyl (Sublimaze) 25 mcg IVPUSH ONETIME ONE Stop: 09/24/16 23:59 Last Admin: 09/25/16 00:09 Dose: 25 mcg Fentanyl (Sublimaze) 25 mcg IVPUSH Q4H PRN PRN Reason: Pain Last Admin: 09/25/16 04:05 Dose: 25 mcg Fentanyl (Sublimaze) 25 mcg IVPUSH Q1H PRN PRN Reason: Pain Last Admin: 09/25/16 08:32 Dose: 25 mcg Hydromorphone HCl (Dilaudid) 1 mg IVPUSH Q1H PRN PRN Reason: Pain (moderate 4-6) Last Admin: 09/25/16 09:51 Dose: 1 mg Hydromorphone HCl (Dilaudid) 0.5 mg IVPUSH Q1H PRN PRN Reason: Pain Last Admin: 09/25/16 22:04 Dose: 0.5 mg Lactated Ringer's (Ringers, Lactated) 500 mls @ 999 mls/hr IV .BOLUS ONE Stop: 09/25/16 00:18 Last Admin: 09/24/16 23:52 Dose: 999 mls/hr Pantoprazole Sodium 80 mg/ (Sodium Chloride) 100 mls @ 10 mls/hr IV Q10H EBEN PRN Reason: 8 MG/HR Last Admin: 09/25/16 02:27 Dose: 8 mg/hr, 10 mls/hr Lactated Ringer's (Ringers, Lactated) 250 mls @ 999 mls/hr IV .BOLUS ONE Stop: 09/25/16 02:49 Last Admin: 09/25/16 02:37 Dose: 999 mls/hr Lactated Ringer's (Ringers, Lactated) Confirm Administered Dose 1,000 mls @ as directed .ROUTE .STK-MED ONE Stop: 09/25/16 02:39 Last Admin: 09/25/16 02:52 Dose: Not Given Dextrose/Lactated Ringer's (Dextrose 5%-Lactated Ringers) Confirm Administered Dose 1,000 mls @ as directed .ROUTE .STK-MED ONE Stop: 09/25/16 02:49 Last Admin: 09/25/16 05:20 Dose: Not Given Dextrose/Lactated Ringer's (Dextrose 5%-Lactated Ringers) 1,000 mls @ 125 mls/ hr IV ASDIRECTED EBEN Metronidazole 500 mg/ Premix 100 mls @ 100 mls/hr IV Q6H [facility] Last Admin: 09/25/16 23:11 Dose: Not Given Piperacillin Sod/Tazobactam (Sod 4.5 gm/ Sodium Chloride) 100 mls @ 200 mls/hr IV ONETIME ONE Stop: 09/25/16 04:29 Last Admin: 09/25/16 04:35 Dose: 200 mls/hr Piperacillin Sod/Tazobactam (Sod 4.5 gm/ Sodium Chloride) 100 mls @ 25 mls/hr IV Q8H [facility] Last Admin: 09/25/16 19:30 Dose: 25 mls/hr Dextrose/Lactated Ringer's (Dextrose 5%-Lactated Ringers) 1,000 mls @ 125 mls/ hr IV ASDIRECTED [facility] Last Admin: 09/25/16 02:45 Dose: 125 mls/hr Dextrose/Sodium Chloride (Dextrose 5%-1/2 Ns) 1,000 mls @ 100 mls/hr IV ASDIRECTED [facility] Last Admin: 09/25/16 19:31 Dose: 100 mls/hr Dextrose/Sodium Chloride (Dextrose 5%-1/2 Ns) 500 mls @ 500 mls/hr IV ASDIRECTED [facility] Stop: 09/25/16 22:29 Last Admin: 09/25/16 20:20 Dose: 500 mls/hr Lorazepam (Ativan) 0.25 mg IVPUSH ONETIME ONE Stop: 09/25/16 20:22 Last Admin: 09/25/16 21:08 Dose: Not Given Pantoprazole Sodium (Protonix Iv) 40 mg IVPUSH ONETIME ONE Stop: 09/24/16 22:03 Last Admin: 09/24/16 22:15 Dose: 40 mg Pantoprazole Sodium (Protonix Iv) 40 mg IVPUSH ONETIME ONE Stop: 09/25/16 01:54 Last Admin: 09/25/16 02:10 Dose: 40 mg Pantoprazole Sodium (Protonix Iv) 40 mg IVPUSH Q24H [facility] Last Admin: 09/25/16 16:23 Dose: 40 mg Sucralfate (Carafate) 1 gm PO ONETIME ONE Stop: 09/24/16 22:02 Last Admin: 09/24/16 22:15 Dose: 1 gm - My Orders Last 24 Hours: My Active Orders 09/25/16 12:40 Oxygen Therapy [RC] ASDIRECTED 09/25/16 22:39 Morphine 2 mg IVPUSH Q4H PRN 09/25/16 22:40 Scopolamine [Transderm-Scop] 1.5 mg TRDERM Q72H PRN 09/25/16 22:46 LORazepam [Ativan] 1 mg IVPUSH Q4H PRN 09/25/16 Breakfast Nothing Per Oral Diet [DIET] - Plan Plan:: I/P: Abdominal pain- likely perforated abdominal viscous/gastric ulcer by hx -Free air under diaphragm on CXR. -Family refuses/defers further imaging, CT of abd/pelvis in ER -Family elects Comfort cares with IV abx, IVF and pain medications at this time, no surgical intervention. -IV flagyl and levaquin, protonix IVP, IVF- D51/2NS infusing at 100cc/hr -Pain management- fentanyl changed to dilaudid IVP Q1 hr -Not a good prognosis for this patient at this time Dementia -Chronic -Aggitation overnight; 1:1 care due to high fall risk Other: Code status listed as DNR/DNI, family wishes comfort cares with above noted interventions; needs clarifications.
[2016-09-26 07:38] VITALS: BP 71/47
[2016-09-26] MEDS ORDERED: LORazepam 2 MG/ML MDV IM ONE (10:39)
[2016-09-26] MEDS ORDERED: LORazepam 2 MG/ML MDV IVPUSH PRN (10:39)
[2016-09-26] MEDS ORDERED: Morphine 2 MG/ML Syringe IVPUSH PRN (10:39)
[2016-09-26] MEDS ORDERED: Morphine 4 MG/ML Syringe IVPUSH PRN (10:40)
--- NOTE | 2016-09-26 14:06 | PCM.SN ---
- Free Text/Narrative Note: Last night I spoke to her 2 daughters and they decided to stop everything but made her comfortable. Comfort/palliative care then was activated. Today at about 1355, the patient peacefully with family present at bedside. Her body will be released to [facility] for processing per family's request.
--- NOTE | 2016-09-26 14:20 | PCM.DCSUM1 ---
Discharge Summary - Hospital Course Brief History: This is an 89-year-old elderly white female with past medical history of hyperlipidemia, hypertension and advanced dementia who comes in complaints of not feeling well associated with upset stomach and abdominal pain ; was admitted for suspected bowel perforation. - Discharge Data Discharge Date: 09/26/16 Discharge Disposition: 20 Condition: Good - Discharge Diagnosis/Problem(s) (1) Perforated abdominal viscus SNOMED Code(s): 719451779 ICD Code: [id number] - Status: Acute Priority: High - Patient Summary/Data Operative Procedure(s) Performed: None Complications: Consults: Consultations 09/25/16 06:45 Consult to Spiritual Care [CONS] Routine Hospital Course: Patient was primarily admitted for abdominal pain felt to be related to perforated bowel. Unfortunately family did not want any further diagnostic testing or treatment other than conservative management. Sometime last evening, we met with her daughters and both decided patient be made comfortable. At that time palliative care/comfort measures were activated. Today at about 1355, the patient peacefully with family present at bedside. Her body will be released to [facility] for processing. Her primary care provider Dr. Schultz was called and informed about her passing. - Patient Instructions Other/Special Instructions: - Patient . - Her body will be released to [facility] for processing - Discharge Plan Home Medications: Home Meds Aspirin [Ecotrin] 81 mg PO DAILY 08/01/15 [History] Atenolol [Tenormin] 100 mg PO DAILY 08/01/15 [History] Lisinopril 40 mg PO DAILY 08/01/15 [History] amLODIPine [Norvasc] 10 mg PO DAILY 08/01/15 [History] Referrals: Luke Schultz MD [Primary Care Provider] - - Discharge Summary/Plan Comment DC Time >30 min.: Yes (45 mins) Discharge Summary/Plan Comment: Transfer to [facility] - General Info Date of Service: 09/26/16 Admission Dx/Problem (Free Text: Abdominal Pain Subjective Update: Follow Up - Review of Systems Systems Review Comment: Patient - Patient Data Vitals - Most Recent: Last Vital Signs Temp 36.3 C 09/26/16 02:25 Pulse 66 09/26/16 02:25 Resp 40 H 09/26/16 02:22 BP 71/47 L 09/26/16 02:22 Pulse Ox 90 L 09/26/16 02:25 Weight - Most Recent: 54.476 kg I&O - Last 24 hours: Intake & Output 09/25/16 09/26/16 09/26/16 22:59 06:59 14:59 Intake Total 965 1149 Output Total 600 0 Balance 365 1149 Lab Results - Last 24 hrs: Laboratory Results - last 24 hr 09/25/16 Range/Units 12:20 MRSA (PCR) Negative Med Orders - Current: Current Medications Lorazepam (Ativan) 2 mg IVPUSH Q4H PRN PRN Reason: restlessness Last Admin: 09/26/16 11:03 Dose: 2 mg Morphine Sulfate (Morphine) 4 mg IVPUSH Q4H PRN PRN Reason: Pain Scopolamine (Transderm-Scop) 1.5 mg TRDERM Q72H PRN PRN Reason: Nausea Last Admin: 09/25/16 23:05 Dose: 1.5 mg Discontinued Medications Al Hydroxide/Mg Hydroxide 30 (ml/ Lidocaine HCl 15 ml) 0 ml PO ONETIME ONE Stop: 09/24/16 23:11 Last Admin: 09/24/16 23:19 Dose: 45 ml Fentanyl (Sublimaze) 25 mcg IVPUSH ONETIME ONE Stop: 09/24/16 23:59 Last Admin: 09/25/16 00:09 Dose: 25 mcg Fentanyl (Sublimaze) 25 mcg IVPUSH Q4H PRN PRN Reason: Pain Last Admin: 09/25/16 04:05 Dose: 25 mcg Fentanyl (Sublimaze) 25 mcg IVPUSH Q1H PRN PRN Reason: Pain Last Admin: 09/25/16 08:32 Dose: 25 mcg Hydromorphone HCl (Dilaudid) 1 mg IVPUSH Q1H PRN PRN Reason: Pain (moderate 4-6) Last Admin: 09/25/16 09:51 Dose: 1 mg Hydromorphone HCl (Dilaudid) 0.5 mg IVPUSH Q1H PRN PRN Reason: Pain Last Admin: 09/25/16 22:04 Dose: 0.5 mg Lactated Ringer's (Ringers, Lactated) 500 mls @ 999 mls/hr IV .BOLUS ONE Stop: 09/25/16 00:18 Last Admin: 09/24/16 23:52 Dose: 999 mls/hr Pantoprazole Sodium 80 mg/ (Sodium Chloride) 100 mls @ 10 mls/hr IV Q10H [facility] PRN Reason: 8 MG/HR Last Admin: 09/25/16 02:27 Dose: 8 mg/hr, 10 mls/hr Lactated Ringer's (Ringers, Lactated) 250 mls @ 999 mls/hr IV .BOLUS ONE Stop: 09/25/16 02:49 Last Admin: 09/25/16 02:37 Dose: 999 mls/hr Lactated Ringer's (Ringers, Lactated) Confirm Administered Dose 1,000 mls @ as directed .ROUTE .[facility] ONE Stop: 09/25/16 02:39 Last Admin: 09/25/16 02:52 Dose: Not Given Dextrose/Lactated Ringer's (Dextrose 5%-Lactated Ringers) Confirm Administered Dose 1,000 mls @ as directed .ROUTE .[facility] ONE Stop: 09/25/16 02:49 Last Admin: 09/25/16 05:20 Dose: Not Given Dextrose/Lactated Ringer's (Dextrose 5%-Lactated Ringers) 1,000 mls @ 125 mls/ hr IV ASDIRECTED [facility] Metronidazole 500 mg/ Premix 100 mls @ 100 mls/hr IV Q6H [facility] Last Admin: 09/25/16 23:11 Dose: Not Given Piperacillin Sod/Tazobactam (Sod 4.5 gm/ Sodium Chloride) 100 mls @ 200 mls/hr IV ONETIME ONE Stop: 09/25/16 04:29 Last Admin: 09/25/16 04:35 Dose: 200 mls/hr Piperacillin Sod/Tazobactam (Sod 4.5 gm/ Sodium Chloride) 100 mls @ 25 mls/hr IV Q8H [facility] Last Admin: 09/25/16 19:30 Dose: 25 mls/hr Dextrose/Lactated Ringer's (Dextrose 5%-Lactated Ringers) 1,000 mls @ 125 mls/ hr IV ASDIRECTED [facility] Last Admin: 09/25/16 02:45 Dose: 125 mls/hr Dextrose/Sodium Chloride (Dextrose 5%-1/2 Ns) 1,000 mls @ 100 mls/hr IV ASDIRECTED [facility] Last Admin: 09/25/16 19:31 Dose: 100 mls/hr Dextrose/Sodium Chloride (Dextrose 5%-1/2 Ns) 500 mls @ 500 mls/hr IV ASDIRECTED [facility] Stop: 09/25/16 22:29 Last Admin: 09/25/16 20:20 Dose: 500 mls/hr Lorazepam (Ativan) 0.25 mg IVPUSH ONETIME ONE Stop: 09/25/16 20:22 Last Admin: 09/25/16 21:08 Dose: Not Given Lorazepam (Ativan) 1 mg IVPUSH Q4H PRN PRN Reason: restlessness Lorazepam (Ativan) 1 mg IM ONETIME ONE Stop: 09/26/16 10:40 Last Admin: 09/26/16 11:04 Dose: Not Given Morphine Sulfate (Morphine) 2 mg IVPUSH Q4H PRN PRN Reason: Pain Last Admin: 09/26/16 09:41 Dose: 2 mg Morphine Sulfate (Morphine) 3 mg IVPUSH Q4H PRN PRN Reason: Pain Pantoprazole Sodium (Protonix Iv) 40 mg IVPUSH ONETIME ONE Stop: 09/24/16 22:03 Last Admin: 09/24/16 22:15 Dose: 40 mg Pantoprazole Sodium (Protonix Iv) 40 mg IVPUSH ONETIME ONE Stop: 09/25/16 01:54 Last Admin: 09/25/16 02:10 Dose: 40 mg Pantoprazole Sodium (Protonix Iv) 40 mg IVPUSH Q24H [facility] Last Admin: 09/25/16 16:23 Dose: 40 mg Sucralfate (Carafate) 1 gm PO ONETIME ONE Stop: 09/24/16 22:02 Last Admin: 09/24/16 22:15 Dose: 1 gm - Exam Physical Findings Comments:: Patient *Q Meaningful Use (DIS) - VTE *Q VTE Criteria *Q: - Stroke *Q Stroke Criteria *Q: - AMI *Q AMI Criteria *Q:
== END 2016-09-26 15:32 | disposition expired | DRG 395 ==
LOC: JD.ED 21:25 → JD.MS 09-25 02:26 → UNDOADMIN 09-25 02:26 → JD.MS 09-25 02:50 → UNDODISIN 09-26 15:32
PROVIDERS: ADMIT Internal Medicine; ATTEND Internal Medicine
DX: K63.1 Perforation of intestine (nontraumatic) (principal); G30.9 Alzheimer's disease, unspecified; F02.80 Dementia in other diseases classified elsewhere, unspecified severity, without behavioral disturbance, psychotic disturbance, mood disturbance, and anxiety; I10 Essential (primary) hypertension; E78.5 Hyperlipidemia, unspecified; Z79.82 Long term (current) use of aspirin; Z79.899 Other long term (current) drug therapy; Z88.2 Allergy status to sulfonamides; Z88.8 Allergy status to other drugs, medicaments and biological substances; Z66 Do not resuscitate; Z51.5 Encounter for palliative care; Z91.81 History of falling; M19.90 Unspecified osteoarthritis, unspecified site; D64.9 Anemia, unspecified
CPT/HCPCS: 36415; 71010; 80053; 81001; 82270; 83605; 83690; 84484; 85025; 85610; 85730; 87040 ×2; 96361; 96375; 96376; 99285; A9270 ×3; C9113 ×2; J3010; J7120; 80048; 86140; 87641; 96365; 99223; 99239; 99284; J1170; J2060; J2270; J2543; J7030; J7042